=== PATIENT | female | born 1960 | race Caucasian/White ===

== ENCOUNTER 2018-04-10 20:19 | Emergency (ER) | payer BC ==
[2018-04-10 21:55] VITALS: BP 146/94
[2018-04-10] MEDS ORDERED: predniSONE TAB* 20 MG PO ONE (21:55)
--- NOTE | 2018-04-10 21:55 | UC ---
UC General HPI - HPI Summary HPI Summary: pt has had nasal congestion for a week that moved to her chest causing cough. she has a hx of asthma. using albuterol inhaler. did have a fever but none now. no cp - History of Current Complaint Chief Complaint: UCGeneralIllness Stated Complaint: COUGH, CONGESTION Time Seen by Provider: 04/10/18 21:48 Hx Obtained From: Patient Onset/Duration: Gradual Onset Timing: Constant Pain Intensity: 0 Aggravating: nothing Associated Signs & Symptoms: Positive: Cough - Allergy/Home Medications Allergies/Adverse Reactions: Allergies Allergy/AdvReac Type Severity Reaction Status Date / Time No Known Allergies Allergy Verified 02/23/16 11:07 PMH/Surg Hx/FS Hx/Imm Hx Endocrine History: Thyroid Disease Respiratory History: Asthma - Surgical History Surgical History: Yes Surgery Procedure, Year, and Place: CHOLYCYSTECTOMY, APPENDECTOMY,RIGHT ANKLE REPAIR. D&C, TONSILLECTOMY. COLONOSCOPY WITH POLOPECTOMY. - Family History Known Family History: Positive: Unknown - Social History Occupation: Employed Full-time Alcohol Use: None Substance Use Type: None Smoking Status (MU): Never Smoked Tobacco - Immunization History Vaccination Up to Date: Yes Review of Systems Constitutional: Negative Skin: Negative Eyes: Negative ENT: Nasal Discharge Respiratory: Cough Cardiovascular: Negative Gastrointestinal: Negative Genitourinary: Negative Motor: Negative Neurovascular: Negative Musculoskeletal: Negative Neurological: Negative Psychological: Negative Is Patient Immunocompromised?: No All Other Systems Reviewed And Are Negative: Yes Physical Exam Triage Information Reviewed: Yes Appearance: Well-Appearing Vital Signs: Initial Vital Signs Temp 97.7 F 04/10/18 21:27 Pulse 95 04/10/18 21:27 Resp 16 04/10/18 21:27 BP 181/90 04/10/18 21:27 Pulse Ox 99 04/10/18 21:27 Vital Signs Reviewed: Yes Eyes: Positive: Conjunctiva Clear ENT: Positive: Pharynx normal, Nasal congestion, Nasal drainage - clear, TMs normal Neck: Positive: Supple, Nontender, No Lymphadenopathy Respiratory: Positive: Lungs clear, Decreased breath sounds, Other: - NPC Cardiovascular: Positive: RRR, No Murmur Abdomen Description: Positive: Nontender, No Organomegaly, Soft Bowel Sounds: Positive: Present Musculoskeletal: Positive: ROM Intact Neurological: Positive: Alert Psychological: Positive: Age Appropriate Behavior Skin Exam: Normal Course/Dx - Course Course Of Treatment: non toxic. no concern for pneumonia. c/w uri, bronchitis and asthma flare. - Differential Dx - Multi-Symptom Provider Diagnoses: URI, Bronchitis, asthma flare. Discharge - Sign-Out/Discharge Documenting (check all that apply): Discharge/Admit/Transfer - Discharge Plan Condition: Stable Disposition: HOME Prescriptions: Azithromycin TAB* [Zithromax TAB (Z-TALYA) 250 mg #6 tabs] 2 tab PO .TODAY, THEN 1 DAILY #1 talya predniSONE TAB* [Deltasone TAB*] 40 mg PO DAILY 4 Days #8 tab Patient Education Materials: Asthma (ED), Upper Respiratory Infection (ED), Acute Bronchitis (ED) Referrals: Ryann Monet NP [Primary Care Provider] - 5 Days Additional Instructions: USE YOUR ALBUTEROL INHALER 2 PUFFS EVERY 6 HOURS - Billing Disposition and Condition Condition: STABLE Disposition: HOME
[2018-04-10] MEDS ORDERED: Azithromycin TAB* 250 MG PO ONE (21:56)
== END 2018-04-10 22:11 | disposition home or self-care (01) ==
LOC: UCCORT 20:19
DX: J06.9 Acute upper respiratory infection, unspecified (principal); J40 Bronchitis, not specified as acute or chronic; J45.909 Unspecified asthma, uncomplicated; E07.9 Disorder of thyroid, unspecified
CPT/HCPCS: 99212; A9270-GY; G0463; J7512

== ENCOUNTER 2018-08-04 19:58 | Emergency (ER) | payer BC ==
[2018-08-04 20:21] VITALS: BP 136/79
--- NOTE | 2018-08-04 20:39 | UC ---
Skin Complaint HPI - HPI Summary HPI Summary: Itchy rash on the left anterior gaytan for the last month. Having some sweats/ chills the last 2 weeks. - History of Current Complaint Chief Complaint: UCRash Stated Complaint: RASH ON LEG Hx Obtained From: Patient ?: No Onset/Duration: Gradual Onset, Lasting Weeks - 4 Timing: Constant Onset Severity: Mild Current Severity: Moderate Pain Intensity: 0 Location: Discrete, Other - left lower leg Character: Pruritus, Redness, Raised Aggravating Factor(s): Nothing Alleviating Factor(s): Nothing Associated Signs & Symptoms: Positive: Diaphoresis, Chills, Rash - Allergy/Home Medications Allergies/Adverse Reactions: Allergies Allergy/AdvReac Type Severity Reaction Status Date / Time No Known Allergies Allergy Verified 08/04/18 20:22 Home Medications: Home Medications Calcium Carbonate [Calcium] 1,000 mg PO DAILY 08/04/18 [History Confirmed ] Cholecalciferol (Vitamin D3) [Vitamin D3] 1,000 unit PO DAILY 08/04/18 [History Confirmed 08/04/18] Multivitamin [Multivitamins] 1 each PO DAILY 08/04/18 [History Confirmed ] Review of Systems Constitutional: Chills Skin: Rash Is Patient Immunocompromised?: No All Other Systems Reviewed And Are Negative: Yes PMH/Surg Hx/FS Hx/Imm Hx Previously Healthy: Yes - Surgical History Surgical History: Yes Surgery Procedure, Year, and Place: CHOLYCYSTECTOMY, APPENDECTOMY,RIGHT ANKLE REPAIR. D&C, TONSILLECTOMY. COLONOSCOPY WITH POLYPECTOMY. - Family History Known Family History: Positive: Cardiac Disease, Hypertension, Diabetes - Social History Occupation: Employed Full-time Lives: With Family Alcohol Use: Rare Substance Use Type: None Smoking Status (MU): Never Smoked Tobacco - Immunization History Vaccination Up to Date: Yes Physical Exam Triage Information Reviewed: Yes Appearance: Well-Appearing, No Pain Distress, Obese Vital Signs: Initial Vital Signs Temp 97.5 F 08/04/18 20:14 Pulse 85 08/04/18 20:14 Resp 20 08/04/18 20:14 BP 136/79 08/04/18 20:14 Pulse Ox 99 08/04/18 20:14 Vital Signs Reviewed: Yes Eyes: Positive: Conjunctiva Clear Neck exam: Normal Respiratory Exam: Normal Cardiovascular Exam: Normal Musculoskeletal Exam: Normal Neurological Exam: Normal Psychological Exam: Normal Skin: Positive: rashes - coalescing erythematous papular rash over the left anterior gaytan ~ 15x8cm Course/Dx - Differential Diagnoses - Skin Complaint Differential Diagnoses: Contact Dermatitis, Eczema, Poison Angelique - Diagnoses Provider Diagnoses: Non-specific dermatitis Discharge - Sign-Out/Discharge Documenting (check all that apply): Patient Departure All imaging exams completed and their final reports reviewed: No Studies - Discharge Plan Condition: Stable Disposition: HOME Prescriptions: Betamethasone Dip 0.05% ON(NF) [Betamethasone Dipr 0.05% OINT(NF)] 1 applic TOPICAL BID #50 gm Patient Education Materials: Dermatitis (ED), Betamethasone Dipropionate (On the skin) Referrals: Ryann Monet NP [Primary Care Provider] - Additional Instructions: if not getting better or if feeling worse, see the ball mill operator. - Billing Disposition and Condition Condition: STABLE Disposition: Home Images Front/Back of Body, Lg ([place]): 1 - anterior gaytan rash
== END 2018-08-04 20:56 | disposition home or self-care (01) ==
LOC: UCCORT 19:58
DX: L30.9 Dermatitis, unspecified (principal)
CPT/HCPCS: 99212; G0463

== ENCOUNTER 2018-11-17 09:08 | Emergency (ER) | payer SELFPAY ==
[2018-11-17 09:28] VITALS: BP 134/76
[2018-11-17] MEDS ORDERED: Ketorolac INJ* 30 MG/ML 1 ML VIAL IM ONE (09:48)
--- NOTE | 2018-11-17 09:50 | UC ---
UC General HPI - HPI Summary HPI Summary: 7:30AM TODAY, PT SLIPPED ON ICE AND FELL DOWN 4 STEPS LANDING ON HER BACK. C/O PAIN TO HER MID AND LOW BACK. STATES PAIN MAKES IF HARD TO CATCH. NO ABDOMINAL PAIN, NUMB/WEAK EXTREMITIES, SADDLE ANESTHESIA OR BOWEL/BLADDER DYSFUNCTION. - History of Current Complaint Chief Complaint: UCTrauma Stated Complaint: S/P FALL ON BACK(7AM)-HARD TIME CATCHING BREATH Time Seen by Provider: 11/17/18 09:43 Hx Obtained From: Patient Onset/Duration: Gradual Onset Timing: Constant Pain Intensity: 6 Aggravating: MOVEMENT Associated Signs & Symptoms: Negative: Abdominal Pain, Chest Pain, Fever, Weakness - Allergy/Home Medications Allergies/Adverse Reactions: Allergies Allergy/AdvReac Type Severity Reaction Status Date / Time No Known Allergies Allergy Verified 11/17/18 09:27 PMH/Surg Hx/FS Hx/Imm Hx Endocrine History: Thyroid Disease Respiratory History: Asthma - Surgical History Surgical History: Yes Surgery Procedure, Year, and Place: CHOLYCYSTECTOMY, APPENDECTOMY,RIGHT ANKLE REPAIR. D&C, TONSILLECTOMY. COLONOSCOPY WITH POLYPECTOMY. - Family History Known Family History: Positive: Unknown, Cardiac Disease, Hypertension, Diabetes - Social History Alcohol Use: None Substance Use Type: None Smoking Status (MU): Never Smoked Tobacco - Immunization History Vaccination Up to Date: Yes Review of Systems All Other Systems Reviewed And Are Negative: Yes Constitutional: Positive: Negative Skin: Positive: Negative Eyes: Positive: Negative ENT: Positive: Negative Respiratory: Positive: Negative Cardiovascular: Positive: Negative Gastrointestinal: Positive: Negative Genitourinary: Positive: Negative Motor: Positive: Negative Neurovascular: Positive: Negative Musculoskeletal: Positive: Negative Neurological: Positive: Negative Psychological: Positive: Negative Is Patient Immunocompromised?: No Physical Exam Triage Information Reviewed: Yes Appearance: Well-Appearing Vital Signs: Initial Vital Signs Temp 97.9 F 11/17/18 09:23 Pulse 68 11/17/18 09:23 Resp 18 11/17/18 09:23 BP 134/76 11/17/18 09:23 Pulse Ox 100 11/17/18 09:23 Vital Signs Reviewed: Yes Eyes: Positive: Conjunctiva Clear ENT: Positive: Normal ENT inspection Neck: Positive: Supple, Nontender, No Lymphadenopathy, Other: - C-SPINE NON TENDER Respiratory: Positive: Chest non-tender, Lungs clear, Normal breath sounds, No respiratory distress Cardiovascular: Positive: RRR, No Murmur Abdomen Description: Positive: Nontender, No Organomegaly, Soft Bowel Sounds: Positive: Present Musculoskeletal: Positive: Other: - BACK: CURVATURE. NO SWELLING OR DISCOLORATION. DIFFUSELY TENDER OVER THORACIC AND LUMBAR REGIONS. ROM IS LIMITED BY PAIN. NO SADDLE ANESTHESIA. 5/5 STRENGTH, 2+ REFLEXES AND SENSATION INTACTX4. SLOW STEADY GAIT. Neurological: Positive: Alert Psychological: Positive: Normal Response To Family, Age Appropriate Behavior Skin Exam: Normal Diagnostics - Radiology No standard instances Radiology Interpretation Completed By: Radiologist - NO FX'S THORACIC/LUMBAR SPIE-SEE REPORTS Course/Dx - Differential Dx - Multi-Symptom Differential Diagnoses: Other - NO CONCERN FOR ACUTE ABDOMEN, INFECTION OR CAUDA EQUINA. NO CONCERN FOR CARDIOPULMONARY PATHOLOGY. NO FX'S ON XRAY - Diagnoses Provider Diagnosis: Back pain, acute Discharge - Sign-Out/Discharge Documenting (check all that apply): Patient Departure All imaging exams completed and their final reports reviewed: Yes - Discharge Plan Condition: Stable Disposition: HOME Prescriptions: Naproxen [Naprosyn 500 mg tab] 500 mg PO BID 5 Days #10 tablet Patient Education Materials: Back Pain (ED) Forms: *Work Release Referrals: Ryann Monet NP [Primary Care Provider] - Additional Instructions: FOLLOW UP PRIMARY CARE IF NOT BETTER IN 5 DAYS OR SOONER FI WORSE. - Billing Disposition and Condition Condition: STABLE Disposition: Home - Attestation Statements Provider Attestation: I was available for consult. This patient was seen by the MARCELO. The patient was not presented to, seen by, or examined by me. EK
== END 2018-11-17 11:09 | disposition home or self-care (01) ==
LOC: UCCORT 09:08
DX: M54.5 Low back pain (principal); M54.6 Pain in thoracic spine; W00.1XXA Fall from stairs and steps due to ice and snow, initial encounter; Y92.9 Unspecified place or not applicable
CPT/HCPCS: 72070; 72110; 96372; 99212; G0463; J1885